=== PATIENT | male | born 1985 | race Caucasian/White ===

== ENCOUNTER 2024-09-24 14:09 | Emergency (ER) | payer BC, SELFPAY ==
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
[2024-09-24] VITALS (7 sets, daily range): BP systolic 111–140; BP diastolic 69–95; PULSE 61–84; RESP 18–20; TEMP 36.7–36.9; O2SAT 95–99; BMI 39.0
--- OUTSIDE RECORDS SUMMARY | 2024-09-24 14:25 | XMS_ITS | Clinical Summary ---
Author Organization [facility] Address [address] [place] [address] Care Team Providers Care [facility]inary Hospital Attendant Name Role Phone Jong Ortiz MD Primary Care Provider [phone] Allergies No known active allergies Social History Tobacco Use Types Packs/Day Years Used Date Smoking Tobacco: Never Smokeless Tobacco: Never Tobacco Cessation:Counseling Given: Not Answered Alcohol Use Standard Drinks/Week Comments Not Currently 0 (1 standard drink = 0.6 oz pur e alcohol) Sex and Gender Information Value Date Recorded Sex Assigned at Not on file Legal Sex Male 8:14 PM EDT Gender Identity Not on file Sexual Orientation Not on file Last Filed Vital Signs Vital Sign Reading Time Taken Comments Blood Pressure 124/78 11/28/2022 11:00 PM EDT Pulse 70 11/28/2022 11:00 PM EDT Temperature 36.4 C (97.6 F) 11/28/2022 9:27 PM EDT Respiratory Rate 18 11/28/2022 11:00 PM EDT Oxygen Saturation 99% 11/28/2022 11:00 PM EDT Inhaled Oxygen Concentration - - Weight 129 kg (285 lb 0.9 oz) 11/28/2022 5:36 PM EDT Height 180.3 cm (5' 11 ) 11/28/2022 5:36 PM EDT Body Mass Index 39.76 11/28/2022 5:36 PM EDT Plan of Treatment Health Maintenance Due Date Last Done Comments [facility]-Depression Screening 1986 [facility]-/Child/Adol SDOH Screenings 1986 [facility]-Obesity Intervention 1992 [facility]-Varicella Vaccines (1 of 2 - 13+ 2-dose series) 06/30/1999 HPV Vaccines (1 - Male 3-dos e series) 2001 [facility]- SDOH Screenings 2004 [facility]-Adult SDOH Screenings 2004 [facility]-DTaP,Tdap,and Td Vaccine s (1 - Tdap) 2005 [facility]-Hepatitis B Vaccines (1 of 3 - 19+ 3-dose series) 2005 [id number] Vaccine (1 - 20 24-25 season) 2023 [facility]-Influenza Vaccine (Seaso n Ended) 2024 [facility]-Zoster Vaccines (1 of 2) 2036 [facility]-HIV Screening Completed 11/28/2022 [facility]-Hepatitis C Screening Completed 11/28/2022 [facility]-HIB Vaccines Aged Out No longer e ligible based on patient's age to complete this topic [facility]-Hepatitis A Vaccines Aged Out No longer eligible based on patient's age to complete this topic [facility]-IPV Vaccines Aged Out No longer e ligible based on patient's age to complete this topic [facility]-Pneumococcal Vaccine: Pediatrics (0 to 5 Years) and At-Risk Patients (6 to 49 Years) Aged Out No long er eligible based on patient's age to complete this topic [facility]-Rotavirus Vaccines Aged Out No lo nger eligible based on patient's age to complete this topic Procedures Procedure Name Priority Date/Time Associated Diagnosis Comments HEPATITIS C ANTIBODY - ED W/REFLEX TO HCV QUANT PCR STAT 11/28/2022 6:19 PM EDT ED HIV 1/2 ANTIBODY/ANTIGEN SCREEN WITH REFLEX TO HIV I/II DIFFERENTIATION STAT 11/28/2022 6:19 PM EDT from Last 3 Months or Most Recently Relevant to Health Maintenance Results * ED HIV 1/2 Antibody/Antigen Screen w/Reflex to HIV 1/2 Differentiation (11/28/2022 6:19 PM EDT) HIV 1 & 2 Antibody/Antigen Screen Non Reactive Non Reactive 11/28/2022 7:34 PM EDT [facility] Comment:Screening for HIV 1 & 2 antibodies, and P24 antigen is NONREACTIVE. No confirmatory testing is required. Blood Venous blood specimen / Unknown Venipuncture / Unknown 11/28/2022 6:19 PM EDT 11/28/2022 6:52 PM EDT Kunal Hussein MD LAB BLOOD ORDERABLES Final R esult Performing Organization Address City/[facility]/ZIP Co de Phone Number [facility] [address] [place] [address] * Hepatitis C Antibody - ED (11/28/2022 6:19 PM EDT) Hepatitis C Antibody Negative Negative 11/28/2022 7:33 PM EDT [facility] Blood Venous blood specimen / Unknown Venipuncture / Unknown 11/28/2022 6:19 PM EDT 11/28/2022 6:52 PM EDT Kunal Hussein MD LAB BLOOD ORDERABLES Final R esult Performing Organization Address City/[facility] Co de Phone Number [facility] [address] [place] [address] from Last 3 Months or Most Recently Relevant to Health Maintenance Insurance ANTH Care Teams Veterinary Hospital Attendant Relationship Specialty Start Date End Date Jong Ortiz MD [address] [address] PCP - General 11/28/22
--- OUTSIDE RECORDS SUMMARY | 2024-09-24 14:25 | XMS_ITS | Clinical Summary ---
Author Organization [facility] Address [address] [place] [address] Phone [email or web address] Care Team Providers Care Billing Specialist Name Role Phone Jong Ortiz MD Primary Care Provider [phone] Allergies No known active allergies Medications ibuprofen (MOTRIN) 800 MG tablet Take 800 mg by mouth every 8 (eight) hours if needed. 10/31/2019 Active traZODone (DESYREL) 50 MG tablet if needed. Active lamoTRIgine (LaMICtal) 100 MG tablet Take 150 mg by mouth 1 (one) time each day. Active SUMAtriptan (IMITREX) 50 MG tablet 06/05/2021 Active Azelastine HCl 137 MCG/SPRAY solution SPRAY 2 SPRAY NASL ONCE A DAY DIRECTED 02/12/2022 Active fluticasone (FLONASE) 50 MCG/ACT nasal spray SPRAY 2 SPRAY NASL ONCE A DAY DIRECTED 01/15/2022 Active Vyvanse 40 MG capsule Take 40 mg by mouth 1 (one) time each day. 10/15/2022 Active FLUoxetine (PROzac) 20 MG capsule Take 40 mg by mouth 1 (one) time each day. 05/20/2023 Active Allergy Relief 10 MG tablet Take 10 mg by mouth 1 (one) time each day. 05/19/2023 Active omeprazole OTC (PriLOSEC OTC) 20 MG EC tablet Take 20 mg by mouth 1 (one) time each day. Do not crush, chew, or split. Active Active Problems Problem Noted Date Diagnosed Date History of laparoscopic appendectomy 06/08/2019 Fatigue 03/30/2017 Male hypogonadism 03/30/2017 Reduced libido 03/30/2017 Injury, other and unspecified, finger 01/13/2014 Overview (09/09/2017): Closed fracture of phalanx or phalanges of hand 01/13/2014 Overview (09/09/2017): Encounters Date Type Department Care Team Description 09/12/2024 6:30 AM EDT Clinical Support [facility] [address] [place] [address] Pawel, Thee, NANDINI Return to work exam (Primary Dx) from Last 3 Months Social History Tobacco Use Types Packs/Day Years Used Date Smoking Tobacco: Former Cigarettes Q uit: 09/12/2015 Smokeless Tobacco: Never Tobacco Cessation:Counseling Given: Not Answered Intimate Partner Violence Answer Date R ecorded [...] Sign Reading Time Taken Comments Blood Pressure 124/84 09/14/2024 8:37 AM EDT Pulse 86 09/14/2024 8:37 AM EDT Temperature 37 C (98.6 F) 09/14/2024 8:37 AM EDT Respiratory Rate 16 09/14/2024 8:37 AM EDT Oxygen Saturation 98% 09/14/2024 8:37 AM EDT Inhaled Oxygen Concentration - - Weight 129 kg (285 lb) 06/09/2024 8:05 AM EST Height 180.3 cm (5' 11 ) 06/09/2024 8:05 AM EST Body Mass Index 39.75 06/09/2024 8:05 AM EST Plan of Treatment Upcoming Encounters Date Type Department Care Team (Late st Contact Info) Description 09/28/2024 8:30 AM EDT Occ Office Visit [facility] [place] [facility] [address] [place] [address] Kylee Cummings, VIOLENT CRIMES DETECTIVE [address] [place] [address] Health Maintenance Due Date Last Done Comments Dental Cleaning/Exam 1986 HIV Screening 1986 Hepatitis C Screening 1986 Asthma Spirometry 06/30/1991 Annual Preventive Exam 2004 Hep B Infection Screening - Triple Screen 2004 Hepatitis B Immunization (1 of 3 - 19+ 3-dose series) 2005 Pneumococcal: Ped (0 to 5 Yr s) and At-Risk Member (6 to 64 Yrs) (1 of 2 - PCV) 2005 Tetanus Diphtheria and Pertu ssis Immunization (1 - Tdap) 2005 Covid-19 Immunization (1 - 2 024-25 season) 2023 Influenza Immunization (Seas on Ended) 2024 HIB Immunization Aged Out No longer e ligible based on patient's age to complete this topic HPV Immunization Aged Out No longer e ligible based on patient's age to complete this topic Hepatitis A Immunization Aged Out No longer eligible based on patient's age to complete this topic Polio Immunization Aged Out No longer eligible based on patient's age to complete this topic Varicella Immunization Aged Out No lo nger eligible based on patient's age to complete this topic Insurance [place] 5 Care Teams Billing Specialist Relationship Specialty Start Date End Date Jong Ortiz MD [address] [place] [address] PCP - General Enterprise Security Architect 04/01/19
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
--- NOTE | 2024-09-24 15:02 | PC.NURSE ---
finger stick glucose 106
[2024-09-24 15:03] LABS: Basophils % 0.3 % (0.1-2.0); Eosinophils # 0.1 Kmm3 (0.0-0.4); Eosinophils % 1.5 % (0.1-12.0); Hematocrit 45.4 % (42.0-52.0); Hemoglobin 15.4 g/dL (14.1-18.0); Immature Granulocytes # 0.01 10^3uL; Immature Granulocytes % 0.2 %; Mean Corpuscular HGB Conc 33.9 g/dL (31.8-35.4); Mean Corpuscular Hemoglobin 29.7 pg (27.0-31.2); Mean Corpuscular Volume 87.6 fl (80-94); Mean Platelet Volume 10.8 fl (7.4-10.4); Monocytes # 0.3 K/mm3 (0.1-1.0); Monocytes % 5.6 % (1.7-9.3); Neutrophils # 4.5 K/mm3 (1.8-7.8); Neutrophils % 76.4 % (37.0-80.0); Nucleated Red Blood Cells # 0 10^3/uL; Nucleated Red Blood Cells % 0 %; Platelet Count 268 K/mm3 (142-424); Red Blood Count 5.18 M/mm3 (4.60-6.20); Red Cell Distribution Width 13.1 % (11.5-17.5); Red Cell Distribution Width-SD 41.6 fL; White Blood Count 5.9 K/mm3 (4.8-10.8)
[2024-09-24 15:06] LABS: Albumin Level 4.6 g/dl (3.5-5.0); Chloride 109 mmol/L (98-107); Sodium 143 mmol/L (136-145)
[2024-09-24 15:07] LABS: Potassium 4.2 mmoL/L (3.5-5.1)
[2024-09-24 15:09] LABS: Alanine Aminotransferase 29 U/L (12-78); Albumin/Globulin Ratio 1.5 (1.1-1.8); Alkaline Phosphatase 78 U/L (38-126); Anion Gap 8.2 mEq/L (5-15); Aspartate Amino Transferase 31 U/L (17-59); Bilirubin,Total 0.6 mg/dl (0.2-1.3); Blood Urea Nitrogen 13 mg/dl (9-20); Carbon Dioxide 30 mmol/L (22.0-30.0); Creatinine Clearance Estimated 225 mL/min (50-200); Estimated Glomerular Filt Rate 108 ml/min (>60); GFR (African American) 131 ML/MIN (>60); Total Protein,Serum 7.6 g/dl (6.3-8.2)
[2024-09-24 15:10] LABS: Calcium 10.7 mg/dl (8.4-10.2); Glucose 114 mg/dl (74-100); Lipase 74 U/L (23-300)
[2024-09-24 15:11] LABS: Activated Partial Thrombo Time 25.4 seconds (22.8-30.6); INR 0.93 (0.9-1.1); Prothrombin Time 10.4 seconds (10.1-12.5)
--- NOTE | 2024-09-24 15:11 | PC.NURSE ---
Pt to rad at this time
[2024-09-24 15:12] LABS: Ethyl Alcohol < 10 mg/dl (0-10)
[2024-09-24] MEDS: ONDANSETRON 4MG/2ML VIAL 4 MG IV (15:25)
[2024-09-24] MEDS: TET/DIPHTH/PERT-ADULT 0.5ML SYRINGE 0.5 ML IM (15:25)
[2024-09-24] MEDS: MORPHINE 4MG/ML SYRINGE 4 MG IV (15:25)
[2024-09-24] MEDS: 0.9 % SODIUM CHLORIDE 50 ML VIAL 100 ML IV (15:33)
[2024-09-24] MEDS: SODIUM CHLORIDE 0.9% 10ML SYR (RAD ONLY) 10 ML IV (15:33)
[2024-09-24] MEDS: IOPAMIDOL-370 (76%);100ML BOTTLE 180 ML IV (15:34)
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
== END 2024-09-24 16:43 | disposition home or self-care (01) ==
PROVIDERS: Student in an Organized Health Care Education/Training Program; Emergency Provider Emergency Medicine; PCP Pediatrics
DX: R07.9 Chest pain, unspecified (principal); M79.641 Pain in right hand; M79.642 Pain in left hand; V29.99XA Rider (driver) (passenger) of other motorcycle injured in unspecified traffic accident, initial encounter; Y92.410 Unspecified street and highway as the place of occurrence of the external cause; Z23 Encounter for immunization
CPT/HCPCS: 70450; 70496; 70498; 71045; 71275; 72125; 72128; 72131; 72170; 73110; 73130; 73552; 73562; 73590; 74174; 80053; 80320; 83690; 85025; 85610; 85730; 90471; 90715; 96374; 96375; 99285; J2270; J2405; Q9967